=== PATIENT | female | born 1955 | race Caucasian/White ===

== ENCOUNTER 2019-08-15 09:25 | Outpatient (CLI) | payer OTHER, SELFPAY ==
--- NOTE | ~2019-08-15 | MM_ITS ---
EXAMINATION: MM screening jhony BI w layla HISTORY: Screening mammogram TECHNIQUE: Craniocaudal and mediolateral oblique 3-D tomosynthesis images were obtained and synthetic 2-D images were generated. CAD analysis was submitted and interpreted. COMPARISON: 07/13/2017 BREAST PARENCHYMAL COMPOSITION: The breasts are heterogeneously dense, which may obscure small masses . FINDINGS: There is no evidence of suspicious mass, calcification, or architectural distortion to sugg est malignancy in either breast. There has been no suspicious interval change. IMPRESSION: 1. No mammographic evidence of malignancy. 2. Recommend routine screening mammography in one year. BI-RADS Category 1: Negative Reviewed, dictated and finalized at location A. TERIA ATTENDANT
== END 2019-08-15 09:26 | disposition home or self-care (01) ==
LOC: ANHIMG 09:28
PROVIDERS: PCP Physician Assistant; Referring Provider Obstetrics & Gynecology; Visit Provider Physician Assistant
DX: Z12.31 Encounter for screening mammogram for malignant neoplasm of breast (principal)
CPT/HCPCS: 77063; 77067

== ENCOUNTER 2021-11-16 13:55 | Outpatient (CLI) | payer OTHER, SELFPAY ==
--- NOTE | ~2021-11-16 | MMUS_ITS ---
EXAMINATION: MM diagnostic jhony BI w layla, US breast BI complete HISTORY: Left nipple greenish discharge TECHNIQUE: ML, MLO and CC 3-D tomosynthesis images of both breasts were performed and synthetic 2-D i mages were generated. CAD analysis was submitted and interpreted. High resolution complete bilateral breast ultrasound including all 4 quadrants and subareolar areas was performed. COMPARISON: 08/15/2019, 07/13/2017 bilateral screening mammogram examinations BREAST PARENCHYMAL COMPOSITION: The breasts are heterogeneously dense, which may obscure small masses . FINDINGS: MAMMOGRAPHIC FINDINGS: No suspicious mass or architectural distortion, malignant calcification, skin thickening or retractio n or significant new or developing density is detected. Scattered bilateral benign calcifications. ULTRASOUND: Right breast: There is an irregular hypoechoic area at 1:00, with tentacle-like extensions, measuring up to approxi mately 7.5 mm overall dimension. No posterior shadowing is noted. There is adjacent moderately promin ent vascularity. Ultrasound-guided biopsy is recommended due to the irregular margins and spiculated appearance. No suspicious mass or shadowing of either breast is noted otherwise. Bilateral benign-appearing axill sarmad lymph nodes. IMPRESSION: 1. Irregular approximately 7.5 mm mass of right breast at 1:00 2. Ultrasound-guided biopsy of right breast 1:00 lesion is recommended BI-RADS category 4, suspicious findings. Dr. Sawyer telephoned the report and ultrasound-guided biopsy recommendation of right breast 1:00 lesio n on 11/16/2021 at 1607 hours to [facility]. Reviewed, dictated and finalized at location A. IMPRESSION: 1. Irregular approximately 7.5 mm mass of right breast at 1:00 2. Ultrasound-guided biopsy of right breast 1:00 lesion is recommended BI-RADS category 4, suspicious findings. Dr. Sawyer telephoned the report and ultrasound-guided biopsy recommendation of r ight breast 1:00 lesion on 11/16/2021 at 1607 hours to [facility]. IMPRESSION: 1. Irregular approximately 7.5 mm mass of right breast at 1:00 2. Ultrasound-guided biopsy of right breast 1:00 lesion is recommended BI-RADS category [address], [address] Sawyer telephoned the report and ultrasound-guided biopsy recommendation of r ight breast 1:00 lesion on 11/16/2021 at 1607 hours to [facility] Ida johnston
== END 2021-11-16 13:56 | disposition home or self-care (01) ==
PROVIDERS: PCP Physician Assistant; Visit Provider Nurse Practitioner Obstetrics & Gynecology
DX: N64.52 Nipple discharge (principal); R92.8 Other abnormal and inconclusive findings on diagnostic imaging of breast
CPT/HCPCS: 76641; 77062; 77066; G0279